=== PATIENT | female | born 1970 | race Caucasian/White ===

== ENCOUNTER 2016-04-06 11:36 | Outpatient (CLI) | payer OTHER | END 2016-04-06 11:37 | LOC: LAB 11:36 | PROVIDERS: ATTEND Family Medicine | DX: Z51.81 Encounter for therapeutic drug level monitoring (principal) | CPT/HCPCS: 36415; 85610 ==

== ENCOUNTER 2016-04-15 14:35 | Outpatient (CLI) | payer OTHER | END 2016-04-15 14:36 | LOC: LAB 14:35 | PROVIDERS: ATTEND Family Medicine | DX: Z51.81 Encounter for therapeutic drug level monitoring (principal); Z79.01 Long term (current) use of anticoagulants | CPT/HCPCS: 36415; 85610; 86787 ==

== ENCOUNTER 2016-05-20 14:40 | Outpatient (CLI) | payer BC | END 2016-05-20 14:42 | LOC: LAB 14:40 | PROVIDERS: ATTEND Family Medicine | DX: Z51.81 Encounter for therapeutic drug level monitoring (principal) | CPT/HCPCS: 36415; 85610 ==

== ENCOUNTER 2016-06-11 14:51 | Outpatient (CLI) | payer BC | END 2016-06-11 14:52 | LOC: LAB 14:51 | PROVIDERS: ATTEND Family Medicine | DX: Z51.81 Encounter for therapeutic drug level monitoring (principal); Z79.01 Long term (current) use of anticoagulants | CPT/HCPCS: 36415; 85610 ==

== ENCOUNTER 2016-06-26 10:49 | Outpatient (CLI) | payer BC | END 2016-06-26 10:50 | LOC: LAB 10:49 | PROVIDERS: ATTEND Family Medicine | DX: Z51.81 Encounter for therapeutic drug level monitoring (principal); Z79.01 Long term (current) use of anticoagulants; I48.91 Unspecified atrial fibrillation | CPT/HCPCS: 36415; 85610 ==

== ENCOUNTER 2016-07-06 13:06 | Outpatient (CLI) | payer BC | END 2016-07-06 13:07 | LOC: LAB 13:06 | PROVIDERS: ATTEND Family Medicine | DX: Z51.81 Encounter for therapeutic drug level monitoring (principal); Z79.01 Long term (current) use of anticoagulants | CPT/HCPCS: 36415; 85610 ==

== ENCOUNTER 2016-07-15 13:03 | Outpatient (CLI) | payer BC | END 2016-07-15 13:04 | LOC: LABRHC 13:03 | PROVIDERS: ATTEND Physician Assistant | DX: R30.0 Dysuria (principal) | CPT/HCPCS: 87086 ==

== ENCOUNTER 2016-08-20 12:54 | Outpatient (CLI) | payer BC | END 2016-08-20 12:55 | LOC: LAB 12:54 | PROVIDERS: ATTEND Family Medicine | DX: Z51.81 Encounter for therapeutic drug level monitoring (principal) | CPT/HCPCS: 36415; 85610 ==

== ENCOUNTER 2016-08-28 12:30 | Outpatient (CLI) | payer BC | END 2016-08-28 12:31 | LOC: LAB 12:30 | PROVIDERS: ATTEND Family Medicine | DX: Z51.81 Encounter for therapeutic drug level monitoring (principal) | CPT/HCPCS: 36415; 85610 ==

== ENCOUNTER 2016-10-13 11:02 | Outpatient (CLI) | payer BC | END 2016-10-13 11:03 | LOC: LAB 11:02 | PROVIDERS: ATTEND Family Medicine | DX: Z79.01 Long term (current) use of anticoagulants (principal) | CPT/HCPCS: 36415; 85610 ==

== ENCOUNTER 2016-11-03 18:20 | Outpatient (CLI) | payer BC | END 2016-11-03 18:21 | LOC: LAB 18:20 | PROVIDERS: ATTEND Family Medicine | DX: D68.61 Antiphospholipid syndrome (principal) | CPT/HCPCS: 85610 ==

== ENCOUNTER 2016-12-21 11:48 | Outpatient (CLI) | payer BC | END 2016-12-21 11:50 | LOC: LAB 11:48 | PROVIDERS: ATTEND Family Medicine | DX: Z79.01 Long term (current) use of anticoagulants (principal) | CPT/HCPCS: 36415; 85610 ==

== ENCOUNTER 2016-12-28 17:35 | Outpatient (CLI) | payer BC | END 2016-12-28 17:36 | LOC: LAB 17:35 | PROVIDERS: ATTEND Family Medicine | DX: Z79.01 Long term (current) use of anticoagulants (principal) | CPT/HCPCS: 36415; 85610 ==

== ENCOUNTER 2017-02-16 13:55 | Outpatient (CLI) | payer BC | END 2017-02-16 13:56 | LOC: LAB 13:55 | PROVIDERS: ATTEND Family Medicine | CPT/HCPCS: 36415; 85610 ==

== ENCOUNTER 2017-02-23 14:34 | Outpatient (CLI) | payer BC | END 2017-02-23 14:35 | LOC: LAB 14:34 | PROVIDERS: ATTEND Family Medicine | DX: Z51.81 Encounter for therapeutic drug level monitoring (principal) | CPT/HCPCS: 36415; 85610 ==

== ENCOUNTER 2017-03-01 14:14 | Outpatient (CLI) | payer BC | END 2017-03-01 14:15 | LOC: LAB 14:14 | PROVIDERS: ATTEND Family Medicine | DX: Z51.81 Encounter for therapeutic drug level monitoring (principal) | CPT/HCPCS: 36415; 85610 ==

== ENCOUNTER 2017-04-26 17:35 | Outpatient (CLI) | payer BC | END 2017-04-26 17:36 | LOC: LAB 17:35 | PROVIDERS: ATTEND Family Medicine | DX: Z51.81 Encounter for therapeutic drug level monitoring (principal) | CPT/HCPCS: 36415; 85610 ==

== ENCOUNTER 2017-05-13 07:39 | Outpatient (CLI) | payer BC | END 2017-05-13 07:40 | LOC: LAB 07:39 | PROVIDERS: ATTEND Family Medicine | DX: Z51.81 Encounter for therapeutic drug level monitoring (principal) | CPT/HCPCS: 36415; 85610 ==

== ENCOUNTER 2017-05-21 07:52 | Outpatient (CLI) | payer BC | END 2017-05-21 07:53 | LOC: LAB 07:52 | PROVIDERS: ATTEND Family Medicine | DX: Z79.899 Other long term (current) drug therapy (principal) | CPT/HCPCS: 36415; 85610 ==

== ENCOUNTER 2017-07-05 07:39 | Outpatient (CLI) | payer BC | END 2017-07-05 07:40 | LOC: LAB 07:39 | PROVIDERS: ATTEND Family Medicine | DX: Z51.81 Encounter for therapeutic drug level monitoring (principal) | CPT/HCPCS: 36415; 85610 ==

== ENCOUNTER 2017-07-15 07:22 | Outpatient (CLI) | payer BC, OTHER | END 2017-07-15 07:30 | LOC: LAB 07:22 | PROVIDERS: ATTEND Family Medicine | DX: Z51.81 Encounter for therapeutic drug level monitoring (principal) | CPT/HCPCS: 36415; 85610 ==

== ENCOUNTER 2017-07-28 08:10 | Outpatient (CLI) | payer BC | END 2017-07-28 08:11 | LOC: LAB 08:10 | PROVIDERS: ATTEND Family Medicine | DX: Z51.81 Encounter for therapeutic drug level monitoring (principal) | CPT/HCPCS: 36415; 85610 ==

== ENCOUNTER 2017-08-06 08:08 | Outpatient (CLI) | payer OTHER | END 2017-08-06 08:10 | LOC: LAB 08:08 | PROVIDERS: ATTEND Family Medicine | DX: Z51.81 Encounter for therapeutic drug level monitoring (principal) | CPT/HCPCS: 36415; 85610 ==

== ENCOUNTER 2017-08-13 08:05 | Outpatient (CLI) | payer OTHER | END 2017-08-13 12:28 | LOC: LAB 08:05 | PROVIDERS: ATTEND Family Medicine | DX: Z51.81 Encounter for therapeutic drug level monitoring (principal) | CPT/HCPCS: 36415; 85610 ==

== ENCOUNTER 2017-10-12 08:09 | Outpatient (CLI) | payer BC | END 2017-10-12 09:14 | LOC: LAB 08:09 | PROVIDERS: ATTEND Family Medicine | DX: Z51.81 Encounter for therapeutic drug level monitoring (principal) | CPT/HCPCS: 36415; 85610 ==

== ENCOUNTER 2017-10-29 07:46 | Outpatient (CLI) | payer SELFPAY | END 2017-10-29 07:47 | LOC: LAB 07:46 | PROVIDERS: ATTEND Family Medicine | DX: Z51.81 Encounter for therapeutic drug level monitoring (principal) | CPT/HCPCS: 36415; 85610 ==

== ENCOUNTER 2017-11-08 07:54 | Outpatient (CLI) | payer OTHER | END 2017-11-08 07:55 | LOC: LAB 07:54 | PROVIDERS: ATTEND Family Medicine | DX: Z51.81 Encounter for therapeutic drug level monitoring (principal) | CPT/HCPCS: 36415; 85610 ==

== ENCOUNTER 2018-01-13 08:01 | Outpatient (CLI) | payer OTHER | END 2018-01-13 08:03 | LOC: LAB 08:01 | PROVIDERS: ATTEND Family Medicine | DX: Z51.81 Encounter for therapeutic drug level monitoring (principal) | CPT/HCPCS: 36415; 85610 ==

== ENCOUNTER 2018-03-25 08:02 | Outpatient (CLI) | payer OTHER | END 2018-03-25 08:10 | LOC: LAB 08:02 | PROVIDERS: ATTEND Family Medicine | DX: Z79.01 Long term (current) use of anticoagulants (principal); Z51.81 Encounter for therapeutic drug level monitoring | CPT/HCPCS: 36415; 85610 ==

== ENCOUNTER 2018-04-06 08:19 | Outpatient (CLI) | payer OTHER | END 2018-04-06 08:22 | LOC: LAB 08:19 | PROVIDERS: ATTEND Family Medicine | DX: Z51.81 Encounter for therapeutic drug level monitoring (principal); Z79.01 Long term (current) use of anticoagulants | CPT/HCPCS: 36415; 85610 ==

== ENCOUNTER 2018-05-23 08:22 | Outpatient (CLI) | payer OTHER | END 2018-05-23 08:24 | LOC: LAB 08:22 | PROVIDERS: ATTEND Family Medicine | DX: Z51.81 Encounter for therapeutic drug level monitoring (principal) | CPT/HCPCS: 36415; 85610 ==

== ENCOUNTER 2018-07-04 08:00 | Outpatient (CLI) | payer OTHER | END 2018-07-04 08:10 | LOC: LAB 08:00 | PROVIDERS: ATTEND Family Medicine | DX: Z51.81 Encounter for therapeutic drug level monitoring (principal) | CPT/HCPCS: 36415; 85610 ==

== ENCOUNTER 2018-07-11 08:21 | Outpatient (CLI) | payer OTHER | END 2018-07-11 08:23 | LOC: LAB 08:21 | PROVIDERS: ATTEND Family Medicine | DX: Z51.81 Encounter for therapeutic drug level monitoring (principal) | CPT/HCPCS: 36415; 85610 ==

== ENCOUNTER 2018-07-18 08:34 | Outpatient (CLI) | payer OTHER | END 2018-07-18 08:36 | LOC: LAB 08:34 | PROVIDERS: ATTEND Family Medicine | DX: Z51.81 Encounter for therapeutic drug level monitoring (principal) | CPT/HCPCS: 36415; 85610 ==

== ENCOUNTER 2018-07-25 08:02 | Outpatient (CLI) | payer OTHER | END 2018-07-25 08:04 | LOC: LAB 08:02 | PROVIDERS: ATTEND Family Medicine | DX: Z51.81 Encounter for therapeutic drug level monitoring (principal) | CPT/HCPCS: 36415; 85610 ==

== ENCOUNTER 2019-01-31 13:48 | Outpatient (CLI) | payer OTHER | END 2019-01-31 13:53 | LOC: LABRHC 13:48 | PROVIDERS: ATTEND Family Medicine | DX: N30.90 Cystitis, unspecified without hematuria (principal) | CPT/HCPCS: 87086 ==

== ENCOUNTER 2019-02-01 09:09 | Outpatient (CLI) | payer OTHER | END 2019-02-01 09:14 | LOC: LAB 09:09 | PROVIDERS: ATTEND Family Medicine | DX: Z51.81 Encounter for therapeutic drug level monitoring (principal); Z79.899 Other long term (current) drug therapy | CPT/HCPCS: 36415; 85610 ==

== ENCOUNTER 2019-02-13 08:04 | Outpatient (CLI) | payer OTHER | END 2019-02-13 08:09 | LOC: LAB 08:04 | PROVIDERS: ATTEND Family Medicine | DX: Z51.81 Encounter for therapeutic drug level monitoring (principal); Z79.899 Other long term (current) drug therapy | CPT/HCPCS: 36415; 85610 ==

== ENCOUNTER 2019-02-21 09:38 | Outpatient (CLI) | payer OTHER | END 2019-02-21 09:43 | LOC: LAB 09:38 | PROVIDERS: ATTEND Family Medicine | DX: Z51.81 Encounter for therapeutic drug level monitoring (principal) | CPT/HCPCS: 36415; 85610 ==

== ENCOUNTER 2019-02-27 08:04 | Outpatient (CLI) | payer OTHER | END 2019-02-27 08:09 | LOC: LAB 08:04 | PROVIDERS: ATTEND Family Medicine | DX: Z51.81 Encounter for therapeutic drug level monitoring (principal) | CPT/HCPCS: 36415; 85610 ==

== ENCOUNTER 2019-03-06 08:20 | Outpatient (CLI) | payer OTHER | END 2019-03-06 08:25 | LOC: LAB 08:20 | PROVIDERS: ATTEND Family Medicine | DX: Z51.81 Encounter for therapeutic drug level monitoring (principal) | CPT/HCPCS: 36415; 85610 ==

== ENCOUNTER 2019-04-03 08:11 | Outpatient (CLI) | payer OTHER | END 2019-04-03 08:16 | LOC: LAB 08:11 | PROVIDERS: ATTEND Family Medicine | DX: Z51.81 Encounter for therapeutic drug level monitoring (principal) | CPT/HCPCS: 36415; 85610 ==

== ENCOUNTER 2019-04-06 11:13 | Outpatient (CLI) | payer OTHER | END 2019-04-06 11:18 | LOC: LAB 11:13 | PROVIDERS: ATTEND Family Medicine | DX: Z51.81 Encounter for therapeutic drug level monitoring (principal) | CPT/HCPCS: 36415; 85610 ==

== ENCOUNTER 2019-04-11 11:40 | Outpatient (CLI) | payer OTHER | END 2019-04-11 11:45 | LOC: LAB 11:40 | PROVIDERS: ATTEND Family Medicine | DX: Z51.81 Encounter for therapeutic drug level monitoring (principal) | CPT/HCPCS: 36415; 85610 ==